=== PATIENT | male | born 1950 | race Caucasian/White ===

== ENCOUNTER 2018-10-02 12:59 | Emergency (ER) | payer BC, MEDICARE ==
[2018-10-02] MEDS ORDERED: Diphtheria,Pertussis(Acell),Tetanus Vaccine 0.5 ML SDV IM ONE (14:20)
--- NOTE | 2018-10-02 14:24 | EDM.PDOC ---
ED HPI GENERAL MEDICAL PROBLEM - General Chief Complaint: Laceration Stated Complaint: FELL AND HIT FACE Time Seen by Provider: 10/02/18 14:15 Source of Information: Reports: Patient History Limitations: Reports: No Limitations - History of Present Illness INITIAL COMMENTS - FREE TEXT/NARRATIVE: Elpidio is a 68 year old diabetic male who presents to the ED today after sustaining a facial laceration/injury. Patient's foot got stuck on trailer, he fell forward striking his face on the end of his trailer. Patient denies any LOC. Patient is on a baby aspirin daily, no other blood thinners. Patient denies any neck or back pain, denies any visual changes, headache or other concerns. Patient did land on his knees which have small superficial abrasions , he also has some small superficial abrasions to right hand. DT not up to date. Onset: Today, Sudden Duration: Hour(s): (2) Left Face/Facial Pain Score (Numeric/FACES): 3 - Related Data Allergies Allergy/AdvReac Type Severity Reaction Status Date / Time Penicillins Allergy Swollen Verified 10/02/18 14:06 Tongue Home Meds: Home Meds Aspirin [Halfprin] 1 tab PO DAILY 10/02/18 [History] Insulin Glargine,Hum.Rec.Anlog [Lantus Solostar] 46 units SUBCUT BEDTIME [History] Lisinopril/Hydrochlorothiazide [Lisinopril-Hctz 20-12.5 mg Tab] 1 tab PO DAILY 10/02/18 [History] Metoprolol Succinate [Toprol XL] 25 mg PO DAILY 10/02/18 [History] atorvaSTATin Calcium [Lipitor] 1 tab PO DAILY 10/02/18 [History] glipiZIDE [Glucotrol] 1 tab PO DAILY 10/02/18 [History] metFORMIN [Glucophage] 1 tab PO BID 10/02/18 [History] Past Medical History HEENT History: Reports: Impaired Vision Cardiovascular History: Reports: CAD, High Cholesterol, Hypertension, [place] Endocrine/Metabolic History: Reports: Diabetes, Type II - Past Surgical History Cardiovascular Surgical History: Reports: Coronary Artery Stent GI Surgical History: Reports: Colonoscopy Social & Family History - Tobacco Use Smoking Status *Q: Never Smoker - Alcohol Use Days Per Week of Alcohol Use: 1 Number of Drinks Per Day: 1 Total Drinks Per Week: 1 - Recreational Drug Use Recreational Drug Use: No ED ROS GENERAL - Review of Systems Review Of Systems: ROS reveals no pertinent complaints other than HPI. ED EXAM, SKIN/RASH Exam: See Below Exam Limited By: No Limitations General Appearance: Alert, WD/WN, No Apparent Distress Eye Exam: Bilateral Eye: EOMI, PERRL Ears: Normal External Exam, Normal Canal, Hearing Grossly Normal Nose: Normal Inspection Throat/Mouth: Normal Inspection, Normal Oropharynx Head: Normocephalic, Facial Tenderness, Other (Ecchymosis to nasal bridge, no deviation of septum, nares patent, eccymosis under left eye with 2 cm laceration , small abrasion to forehead) Neck: Normal Inspection, Supple, Non-Tender, Full Range of Motion. No: Tender Lateral, Tender Midline Respiratory/Chest: No Respiratory Distress, Lungs Clear, Normal Breath Sounds, Chest Non-Tender Cardiovascular: Normal Peripheral Pulses, Regular Rate, Rhythm GI/Abdominal: Normal Bowel Sounds, Soft, Non-Tender Back Exam: Normal Inspection, Full Range of Motion. No: Paraspinal Tenderness, Vertebral Tenderness Extremities: Normal Inspection, Normal Range of Motion, Non-Tender Neurological: Alert, Oriented, CN II-XII Intact, Normal Cognition, Normal Gait, Normal Reflexes, No Motor/Sensory Deficits Psychiatric: Normal Affect, Normal Mood Skin: Warm, Dry, Other (2 cm laceration under left eye, no signficant bibiana- orbital tenderness, no crepitus, no intra-orbital findings) Lymphatic: No Adenopathy Course - Vital Signs Last Recorded V/S: Last Vital Signs Temp 36.0 C 10/02/18 14:13 Pulse 87 10/02/18 14:13 Resp 15 10/02/18 14:13 BP 161/74 H 10/02/18 14:13 Pulse Ox 95 10/02/18 14:13 lEpidio is a 68 year old male, presents to the ED today after he fell and struck his face on a trailer. Please refer to HPI and focused exam. Patient on exam is alert and oriented, he has no neuro/focal deficits, no signs of significant trauma. No spinous process tenderness, some bruising to left lateral jaw line, no malocclusion or intra-oral findings. DT updated here. Abrasions and laceration cleaned with NS. Facial laceration closed with Dermabond. Wound care discussed as well as reasons to return/head injury precautions. Patient agreeable and discharged in stable condition with his driving. Departure - Departure Time of Disposition: 15:00 Disposition: Home, Self-Care 01 Condition: Good Clinical Impression: Contusion Facial laceration Qualifiers: Encounter type: initial encounter Qualified Code(s): S01.81XA - Laceration without foreign body of other part of head, initial encounter Facial contusion Qualifiers: Encounter type: initial encounter Qualified Code(s): S00.83XA - Contusion of other part of head, initial encounter Hand abrasion Qualifiers: Encounter type: initial encounter Laterality: left Qualified Code(s): S60.512A - Abrasion of left hand, initial encounter - Discharge Information Instructions: Laceration Care, Adult, [id number], Head Injury, Adult, Easy-to -Read, Facial or Scalp Contusion, Abrasion, Stitches, [place], or Adhesive Wound Closure, [id number] Referrals: PCP,None [Primary Care Provider] - Additional Instructions: Tylenol as needed for pain. Ice to facial injuries, apply ice for 20 minutes every 2 hours for the first 24 hours. Avoid putting any Bacitracin or Neosporin on facial lacerations/abrasions as this will dissolve the glue. You can get wounds wet, just carefully dry them. Return with any worsening concerns, vomiting, headache not relieved with Tylenol , visual changes or other concerns.
== END 2018-10-02 14:40 | disposition home or self-care (01) ==
LOC: JP.ED 12:59
DX: S01.81XA Laceration without foreign body of other part of head, initial encounter (principal); S60.512A Abrasion of left hand, initial encounter; I25.10 Atherosclerotic heart disease of native coronary artery without angina pectoris; E78.00 Pure hypercholesterolemia, unspecified; I10 Essential (primary) hypertension; Z23 Encounter for immunization; I25.2 Old myocardial infarction; E11.9 Type 2 diabetes mellitus without complications; Z88.0 Allergy status to penicillin; Z79.82 Long term (current) use of aspirin; Z79.4 Long term (current) use of insulin; Z79.899 Other long term (current) drug therapy; W18.39XA Other fall on same level, initial encounter
CPT/HCPCS: 12001; 12011; 90471; 90715; 99282

== ENCOUNTER 2021-08-25 10:40 | Emergency (ER) | payer MEDICARE ==
[2021-08-25] MEDS ORDERED: Nitroglycerin 0.4 MG Tab.SL SL PRN (10:55)
[2021-08-25] MEDS ORDERED: Sodium Chloride 0.9% 10 ML Syringe FLUSH PRN (10:55)
[2021-08-25] MEDS ORDERED: Morphine 4 MG/ML Syringe IVPUSH PRN (10:55)
[2021-08-25] MEDS ORDERED: Aspirin 81 MG Tab.Chew PO ONE (10:55)
[2021-08-25 11:15] LABS: ESTIMATED GFR 35 mL/min (>60); TROPONIN I HIGH SENSITIVITY 10.5 pg/mL (<=60.3)
== END 2021-08-25 14:12 | disposition home or self-care (01) ==
LOC: JP.ED 10:40
DX: I24.9 Acute ischemic heart disease, unspecified (principal); I25.10 Atherosclerotic heart disease of native coronary artery without angina pectoris; I10 Essential (primary) hypertension; E78.00 Pure hypercholesterolemia, unspecified; I25.2 Old myocardial infarction; E11.9 Type 2 diabetes mellitus without complications; Z79.899 Other long term (current) drug therapy; Z79.84 Long term (current) use of oral hypoglycemic drugs
CPT/HCPCS: 36415; 71045; 80053; 84484; 85025; 85610; 85730; 93005; 93010; 99283; 99285; A9270